=== PATIENT | male | born 1995 | race Caucasian/White ===

== ENCOUNTER 2018-07-29 12:04 | Outpatient (CLI) | payer OTHER ==
--- NOTE | 2018-07-29 18:32 | MRI Report ---
Reason: RADICULOPATHY,CERVICAL REGION Procedure Date: 07/29/2018 Accession Number: [id number] / [id number] Procedure: MRI - Cervical Spine W/O CPT Code: FULL RESULT: EXAM: MRI CERVICAL SPINE WITHOUT CONTRAST EXAM DATE: 07/29/2018 12:40 PM. CLINICAL HISTORY: Cervical radiculopathy. Right radiculopathy of one month. COMPARISONS: None. TECHNIQUE: Multiplanar, multisequence T1-weighted and fluid-sensitive sequences of the cervical spine without contrast. Other: None. FINDINGS: No suspicious marrow replacement is seen in the cervical spine. No abnormal signal is seen in the cervical spinal cord. No spondylolisthesis is present. C2-C5: No posterior disk protrusion is seen. No central canal stenosis. No foraminal stenosis. C5-C6: Mild left paracentral disk protrusion is seen. There is minimal flattening of the left ventral cervical spinal cord. Bilateral uncovertebral joint spurring is seen. Left foraminal narrowing is present. Very mild central canal stenosis is seen particularly towards the left. C6-C7: A moderate central, right paracentral, right posterior lateral, and right foraminal protrusion is seen with mass effect on the right ventral cervical spinal cord and moderate proximal right foraminal stenosis. There is mild central canal stenosis particularly towards the right. C7-T1: No posterior disk protrusion. IMPRESSION: 1. A left-sided disk protrusion is seen at C5-C6 and a right-sided disk protrusion is seen at C6-C7. These result in central canal stenosis and mass effect on the cervical spinal cord greater at C6-C7 relative to C5-C6. 2. Moderate proximal right foraminal stenosis is present at C6-C7. [facility]
== END 2018-07-29 12:05 | disposition home or self-care (01) ==
LOC: DI 12:04
PROVIDERS: ATTEND Nurse Practitioner Family
DX: M50.222 Other cervical disc displacement at C5-C6 level (principal); M48.02 Spinal stenosis, cervical region
CPT/HCPCS: 72141